=== PATIENT | male | born 1980 | race Caucasian/White ===

== ENCOUNTER 2019-02-04 11:23 | Emergency (ER) | payer SELFPAY ==
[~2019-02-04] VITALS: Ht 198.1 cm; Wt 170.1 kg
[2019-02-04 11:57] VITALS: BP 148/93
[2019-02-04] MEDS ORDERED: KETOROLAC TROMETH 30 MG/ML 1ML VIAL IV ONE (12:15)
== END 2019-02-04 12:58 | disposition home or self-care (01) ==
LOC: EDBD 11:23 → ER 11:33
DX: M75.32 Calcific tendinitis of left shoulder (principal); M19.012 Primary osteoarthritis, left shoulder
CPT/HCPCS: 73030; 96374; 99283; J1885